=== PATIENT | male | born 2000 | race Caucasian/White ===

== ENCOUNTER 2019-04-10 13:51 | Emergency (ER) | payer OTHER ==
[2019-04-10] MEDS: ONDANSETRON (ODT) 4 MG TAB ODT (14:30)
[2019-04-10] MEDS: FAMOTIDINE 20 MG TAB PO (14:42)
[2019-04-10 14:43] LABS: ADD MAN DIFF? NO
[2019-04-10 14:49] LABS: WHITE BLOOD COUNT 3.7 10^3/ul (4.8-10.8)
[2019-04-10 14:49] LABS: BASOPHILS % 0.3 % (0.0-2.0); EOSINOPHILS % 0.3 % (0.0-7.0); HEMATOCRIT 43.3 % (42.0-52.0); HEMOGLOBIN 14.6 g/dl (14.0-18.0); LYMPHOCYTES # 0.6 10^3/ul (0.8-2.9); LYMPHOCYTES % 17.1 % (18.0-55.0); MEAN CORPUSCULAR HGB CONC 33.7 g/dl (32.0-37.0); MEAN CORPUSCULAR VOLUME 91.9 fl (72.0-104.0); MONOCYTE # 0.2 10^3/ul (0.3-0.9); MONOCYTES % 6.5 % (0.0-13.0); NEUTROPHIL # 2.8 10^3/ul (1.6-7.5); NEUTROPHILS % 75.5 % (30.0-74.0); PLATELET COUNT 180 10^3/UL (140-415); RED BLOOD COUNT 4.71 10^6/ul (4.70-6.10); RED CELL DISTRIBUTION WIDTH 12.3 % (11.5-14.5)
[2019-04-10 15:03] LABS: ALANINE AMINOTRANSFERASE 30 IU/L (13-69); ALBUMIN 4.3 g/dl (3.3-4.9); ALBUMIN/GLOBULIN RATIO 1.26; ALKALINE PHOSPHATASE 58 IU/L (42-121); ANION GAP 11 (5-13); ASPARTATE AMINO TRANSFERASE 23 IU/L (15-46); BILIRUBIN,INDIRECT 1.1 mg/dl (0-1.1); BILIRUBIN,TOTAL 1.1 mg/dl (0.2-1.3); BLOOD UREA NITROGEN 13 mg/dl (7-20); CALCIUM 8.8 mg/dl (8.4-10.2); CARBON DIOXIDE 30 mmol/L (21-31); CHLORIDE 96 mmol/L (97-110); CREATININE 0.82 mg/dl (0.61-1.24); Estimated GFR > 60 mL/min (>60); GLUCOSE 96 mg/dl (70-220); POTASSIUM 3.7 mmol/L (3.5-5.1); SODIUM 137 mmol/L (135-144); TOTAL PROTEIN 7.7 g/dl (6.1-8.1)
== END 2019-04-10 15:58 | disposition home or self-care (01) ==
LOC: FTE 13:51
DX: H66.003 Acute suppurative otitis media without spontaneous rupture of ear drum, bilateral (principal); R11.10 Vomiting, unspecified
CPT/HCPCS: 76705; 80053; 85025; 99284-25